=== PATIENT | male | born 1995 | race Caucasian/White ===

== ENCOUNTER 2021-11-24 23:31 | Observation (INO) | payer OTHER, SELFPAY ==
[2021-11-24 23:24] VITALS: BP 159/94; PULSE 119; RESP 16; TEMP 36.7; O2SAT 99; BMI 28.4
--- NOTE | 2021-11-24 23:29 | CT_ITS ---
PROCEDURE INFORMATION: Exam: CT Abdomen And Pelvis With Contrast Exam date and time: 11/24/2021 11:50 PM Age: 26 years old Clinical indication: Abdominal tenderness and constipation; Abdominal pain; Generalized; Patient HX: PT states he is constipated, abdomen hurts and he has used meth in last 3 hours; Additional info: Abd pain TECHNIQUE: Imaging protocol: Computed tomography of the abdomen and pelvis with contrast. Radiation optimization: All CT scans at this facility use at least one of these dose optimization techniques: automated exposure control; mA and/or kV adjustment per patient size (includes targeted exams where dose is matched to clinical indication); or iterative reconstruction. Contrast material: ISOVUE; Contrast volume: 75 ml; Contrast route: IV; COMPARISON: No relevant prior studies available. FINDINGS: Liver: Probable hepatic steatosis. Gallbladder and bile ducts: Normal. No calcified stones. No ductal dilation. Pancreas: Normal. No ductal dilation. Spleen: Cystic appearing splenic lesions of doubtful clinical significance. Borderline splenomegaly. Adrenal glands: Normal. No mass. Kidneys and ureters: Normal. No hydronephrosis. Stomach and bowel: Bowel wall thickening of the right and transverse colon. Appendix: Unremarkable appendix. Intraperitoneal space: Unremarkable. No free air. No significant fluid collection. Vasculature: Unremarkable. No abdominal aortic aneurysm. Lymph nodes: Unremarkable. No enlarged lymph nodes. Urinary bladder: Unremarkable as visualized. Reproductive: Unremarkable as visualized. Bones/joints: Unremarkable. No acute fracture. Soft tissues: Unremarkable. Other findings: Stigmata of old granulomatous disease. IMPRESSION: Bowel wall thickening of the right and transverse colon. Colitis would be most likely.
[2021-11-24 23:31] VITALS: BP 118/70; PULSE 110; O2SAT 93
[2021-11-24 23:48] LABS: Basophils # 0.3 K/mm3 (0-0.2); Basophils % 2.2 % (0.1-2.0); Eosinophils # 0.3 K/mm3 (0.0-0.4); Eosinophils % 2.5 % (0.1-12.0); Hematocrit 49.1 % (42.0-52.0); Hemoglobin 17.2 g/dL (14.1-18.0); Lymphocytes # 1.7 K/mm3 (0.7-4.5); Lymphocytes % 12.7 % (10-50); Mean Corpuscular HGB Conc 35.1 g/dL (31.8-35.4); Mean Corpuscular Hemoglobin 32.2 pg (27.0-31.2); Mean Corpuscular Volume 91.5 fl (80-94); Mean Platelet Volume 8.6 fl (7.4-10.4); Monocytes % 7.1 % (1.7-9.3); Neutrophils # 10.3 K/mm3 (1.8-7.8); Neutrophils % 75.5 % (37.0-80.0); Platelet Count 229 K/mm3 (142-424); Red Blood Count 5.36 M/mm3 (4.60-6.20); White Blood Count 13.6 K/mm3 (4.8-10.8)
[2021-11-24 23:54] LABS: Chloride 102 mmol/L (98-107); Potassium 3.7 mmoL/L (3.5-5.1); Sodium 138 mmol/L (136-145)
[2021-11-24 23:57] LABS: Alanine Aminotransferase 138 U/L (12-78); Albumin Level 4.4 g/dl (3.5-5.0); Albumin/Globulin Ratio 1.2 (1.1-1.8); Alkaline Phosphatase 76 U/L (38-126); Amylase 124 U/L (30-110); Anion Gap 11.7 mEq/L (5-15); Aspartate Amino Transferase 173 U/L (17-59); Bilirubin,Total 1.8 mg/dl (0.2-1.3); Blood Urea Nitrogen 21 mg/dl (9-20); Calcium 9.7 mg/dl (8.4-10.2); Carbon Dioxide 28 mmol/L (22.0-30.0); Creatinine Clearance Estimated 148 mL/min (50-200); Estimated Glomerular Filt Rate 101 ml/min (>60); GFR (African American) 122 ML/MIN (>60); Globulin 3.7 g/dL (1.3-3.2); Glucose 90 mg/dl (74-100); Lipase 145 U/L (23-300); Total Protein,Serum 8.1 g/dl (6.3-8.2)
[2021-11-25] VITALS (9 sets, daily range): BP systolic 101–132; BP diastolic 23–104; PULSE 71–113; RESP 16–22; TEMP 36.5–36.8; O2SAT 97–100; BMI 26.4
[2021-11-25 00:05] LABS: C-Reactive Protein 84.9 mg/L (0-4)
[2021-11-25 00:10] LABS: Appearance,Urine CLEAR (Clear); Bilirubin,Urine Negative (Negative); Blood, Urine 1+ (Negative); Color,Urine YELLOW (Yellow); Glucose,Urine (UA) Negative (Negative); Ketones,Urine Negative (Negative); Leukocyte Esterase,Urine Negative (Negative); Microscopic, Urine URINE MICROSCOPIC (MICROSCOPIC); Nitrate,Urine Negative (Negative); Protein,Urine Negative (Negative); Specific Gravity, Urine 1.025 (1.005-1.030); Urobilinogen,Urine 0.2 EU/dl (0.2)
[2021-11-25 00:17] LABS: Erythrocyte Sedimentation Rate 6 mm/hr (0-15)
[2021-11-25 00:24] LABS: Barbiturates Screen,Urine Negative ng/ml (<200); Benzodiazepines Screen,Urine Negative ng/ml (<200)
[2021-11-25 00:25] LABS: Cannabinoid Screen,Urine Negative ng/ml (<50)
[2021-11-25 00:26] LABS: Cocaine Screen,Urine Negative ng/ml (<300); Methadone Screen,Urine Negative ng/ml (<300)
[2021-11-25 00:27] LABS: Opiate Screen,Urine Negative ng/ml (<300); Phencyclidine Screen,Urine Negative ng/ml (<25)
[2021-11-25 00:28] LABS: Amphetamine/Metha Screen,Urine Positive ng/ml (<1000)
--- NOTE | 2021-11-25 00:59 | HMH.EDNVD ---
ED Disposition Clinical Impression: Colitis, Overweight (BMI 25.0-29.9), IVDU (intravenous drug user), Amphetamine abuse, Elevated LFTs UTI (urinary tract infection) Qualifiers: Urinary tract infection type: site unspecified Hematuria presence: without hematuria Qualified Code(s): N39.0 - Urinary tract infection, site not specified Disposition: Admitted As Inpatient Condition on Discharge: Fair Instructions: DI for Acute Abdominal Pain Referrals: Provider,Referral, [Primary Care Provider] - - Critical Care Critical Care Time: No Attestation: On 11/24/21, the high probability of a clinically significant, sudden or life threatening deterioration of the following system(s) required my full and direct attention, intervention and personal management. The time I documented below is in addition to time spent performing reported procedures but includes the following listed in this critical care notation. Medical Decision Making - Medical Records Medical records reviewed: Yes: I reviewed the patient's medical records. - Cong Inquiry Pt receiving controlled substance: No Vital Signs: 11/24/21 23:24 11/24/21 23:31 11/25/21 00:31 Temperature 98.1 F Temperature Source Oral Pulse Rate 110 H 113 H Pulse Rate [Right] 119 H Respiratory Rate 16 Blood Pressure 118/70 132/104 H Blood Pressure [Right Arm] 159/94 H Blood Pressure Mean 87 111 Blood Pressure Mean [Right Arm] 115 02 Sat by Pulse Oximetry 99 93 L 98 Oxygen Delivery Method Room Air Room Air 11/25/21 01:04 Temperature Temperature Source Pulse Rate 109 H Pulse Rate [Right] Respiratory Rate Blood Pressure 132/57 L Blood Pressure [Right Arm] Blood Pressure Mean 82 Blood Pressure Mean [Right Arm] 02 Sat by Pulse Oximetry 97 Oxygen Delivery Method Room Air - Lab Data Lab results reviewed: Yes: I reviewed the patient's lab results. Lab Results 11/24/21 23:37: WBC 13.6 H, RBC 5.36, Hgb 17.2, Hct 49.1, MCV 91.5, MCH 32.2 H, MCHC 35.1, RDW 15.0, Plt Count 229, MPV 8.6, Neut % (Auto) 75.5, Lymph % (Auto) 12.7, [place] % (Auto) 7.1, Eos % (Auto) 2.5, Baso % (Auto) 2.2 H, Neut # (Auto) 10.3 H, Lymph # (Auto) 1.7, [place] # (Auto) 1.0, Eos # (Auto) 0.3, Baso # (Auto) 0.3 H, ESR 6 11/24/21 23:37: Sodium 138, Potassium 3.7, Chloride 102, Carbon Dioxide 28, Anion Gap 11.7, BUN 21 H, Creatinine 0.90, Estimated Creat Clear 148, Estimated GFR 101, Est GFR ( Amer) 122, Glucose 90, Calcium 9.7, Total Bilirubin 1.8 H, AST 173 H, ALT 138 H, Alkaline Phosphatase 76, C-Reactive Protein 84.9 H, Total Protein 8.1, Albumin 4.4, Globulin 3.7 H, Albumin/Globulin Ratio 1.2, Amylase 124 H, Lipase 145 11/24/21 23:37: Procalcitonin 0.118 11/25/21 00:05: Urine Color Yellow, Urine Appearance Clear, Urine pH 6.0, Ur Specific [place] 1.025, Urine Protein Negative, Urine Glucose (UA) Negative, Urine Ketones Negative, Urine Blood 1+, Urine Nitrate Negative, Urine Bilirubin Negative, Urine Urobilinogen 0.2, Ur Leukocyte Esterase Negative, Urine RBC 5-10, Urine WBC 10-20 11/25/21 00:05: Urine Opiates Screen Negative, Urine Methadone Screen Negative, Ur Barbituates Screen Negative, Ur Phencyclidine Scrn Negative, Ur Amphetamines Screen Positive H, U Benzodiazepines Scrn Negative, Urine Cocaine Screen Negative, U Marijuana (THC) Screen Negative 11/25/21 01:09: Lactate 0.7 11/25/21 01:13: SARS-CoV-2 (PCR) Not detected, Influenza A Untype (PCR) Not detected, Influenza Type B (PCR) Not detected Result diagrams: 11/24/21 23:37 11/24/21 23:37 Orders (Tests/Meds): ED MEDICATIONS Generic Name Dose Route Start Last Admin Trade Name Freq PRN Reason Stop Dose Admin Sodium Chloride 1,000 mls @ 999 mls/hr 11/24/21 23:30 11/24/21 23:49 Sod Chlor 0.9% 1000ml Bag IV 11/25/21 00:30 999 mls/hr .[id number] DOTTIE Administration Cefepime HCl 1 gm/ Sodium 50 mls @ 100 mls/hr 11/25/21 01:30 11/25/21 01:23 Chloride IV 12/09/21 01:29 100 mls/hr Q12H DOTTIE Administration Va
--- NOTE | 2021-11-25 01:12 | XR_ITS ---
PROCEDURE INFORMATION: Exam: XR Chest Exam date and time: 11/25/2021 1:15 AM Age: 26 years old Clinical indication: Pain; Other: Upper abdomen; Additional info: Abd pain TECHNIQUE: Imaging protocol: XR of the chest. Views: 1 view. COMPARISON: CT ABDOMEN PELVIS W CON 11/24/2021 11:50 PM FINDINGS: Lungs: Unremarkable. No consolidation. Pleural spaces: Unremarkable. No pleural effusion. No pneumothorax. Heart/Mediastinum: Unremarkable. No cardiomegaly. Bones/joints: Unremarkable. IMPRESSION: No acute findings.
[2021-11-25 01:22] LABS: Coronavirus 19, PCR Not Detected (NotDetected); Influenza A, PCR Not Detected (NotDetected); Influenza B, PCR Not Detected (NotDetected)
[2021-11-25 01:27] LABS: Lactic Acid 0.7 mmol/L (0.7-2.1)
[2021-11-25 01:31] LABS: Procalcitonin 0.118 ng/mL (0.0-2.0)
--- NOTE | 2021-11-25 03:00 | PC.NURSE ---
PATIENT UP TO FLOOR VIA WHEELCHAIR @ THIS TIME.
--- NOTE | 2021-11-25 07:11 | HMH.PHAINT ---
MEDICATION RECONCILIATION COMPLETED ON PATIENT USING EXTERNAL FILL HISTORY FROM PHARMACY. -CHERELLE LANDEROS, GLADISD
--- NOTE | 2021-11-25 07:12 | HMH.PHAVTE ---
[facility] Pharmacy VTE Monitoring - Patient Demographics Admission date: 11/25/21 Report Date: 11/25/21 Time: 07:12 Allergies/Adverse Reactions: Patient Allergies No Known Allergies Allergy (Verified 11/24/21 23:29) Height: 1.73 m Weight: 78.925 kg Patient Problems: Current Active Problems Colitis (Acute) Overweight (BMI 25.0-29.9) (Acute) IVDU (intravenous drug user) (Acute) Amphetamine abuse (Acute) UTI (urinary tract infection) (Acute) Elevated LFTs (Acute) - VTE Risk Labs: VTE Related Lab Results Hgb 17.2 g/dL (14.1-18.0) 11/24/21 23:37 Hct 49.1 % (42.0-52.0) 11/24/21 23:37 Plt Count 229 K/mm3 (142-424) 11/24/21 23:37 BUN 21 mg/dl (9-20) H 11/24/21 23:37 Creatinine 0.90 mg/dl (0.66-1.25) 11/24/21 23:37 Estimated Creat Clear 148 mL/min (50-200) 11/24/21 23:37 Was VTE Risk Assessment Performed: Yes VTE Score: 0 - Prophylaxis VTE Prophylaxis Ordered?: Yes Types of VTE Prophylaxis: TEDS Knee High Location of Applied Device: Bilateral Lower Extremeties
--- NOTE | 2021-11-25 07:58 | P.CONPHA_ITS ---
- Pharmacy Consult Date: 11/25/21 Time: 07:58 Referring provider: OCTAVIA Reason for Consult:: VANCOMYCIN INITIATION AND MANAGEMENT Allergies and ADEs:: Allergies Allergy/AdvReac Type Severity Reaction Status Date / Time No Known Allergies Allergy Verified 11/24/21 23:29 Home Medications:: Home Medications Medication Instructions Recorded Confirmed Type Melatonin 10 mg PO HS 11/25/21 11/25/21 History hydrOXYzine HCL [Hydroxyzine HCl] 25 mg PO QIDP PRN 11/25/21 11/25/21 History Height: 1.73 m Weight: 78.925 kg Laboratory Results:: Laboratory Results - last 24 hr 11/24/21 23:37: WBC 13.6 H, RBC 5.36, Hgb 17.2, Hct 49.1, MCV 91.5, MCH 32.2 H, MCHC 35.1, RDW 15.0, Plt Count 229, MPV 8.6, Neut % (Auto) 75.5, Lymph % (Auto) 12.7, [place] % (Auto) 7.1, Eos % (Auto) 2.5, Baso % (Auto) 2.2 H, Neut # (Auto) 10.3 H, Lymph # (Auto) 1.7, [place] # (Auto) 1.0, Eos # (Auto) 0.3, Baso # (Auto) 0.3 H, ESR 6 11/24/21 23:37: Sodium 138, Potassium 3.7, Chloride 102, Carbon Dioxide 28, Anion Gap 11.7, BUN 21 H, Creatinine 0.90, Estimated Creat Clear 148, Estimated GFR 101, Est GFR ( Amer) 122, Glucose 90, Calcium 9.7, Total Bilirubin 1.8 H, AST 173 H, ALT 138 H, Alkaline Phosphatase 76, C-Reactive Protein 84.9 H, Total Protein 8.1, Albumin 4.4, Globulin 3.7 H, Albumin/Globulin Ratio 1.2, Amylase 124 H, Lipase 145 11/24/21 23:37: Procalcitonin 0.118 11/25/21 00:05: Urine Color Yellow, Urine Appearance Clear, Urine pH 6.0, Ur Specific [place] 1.025, Urine Protein Negative, Urine Glucose (UA) Negative, Urine Ketones Negative, Urine Blood 1+, Urine Nitrate Negative, Urine Bilirubin Negative, Urine Urobilinogen 0.2, Ur Leukocyte Esterase Negative, Urine RBC 5- 10, Urine WBC 10-20 11/25/21 00:05: Urine Opiates Screen Negative, Urine Methadone Screen Negative, Ur Barbituates Screen Negative, Ur Phencyclidine Scrn Negative, Ur Amphetamines Screen Positive H, U Benzodiazepines Scrn Negative, Urine Cocaine Screen Negative, U Marijuana (THC) Screen Negative 11/25/21 01:09: Lactate 0.7 11/25/21 01:13: SARS-CoV-2 (PCR) Not detected, Influenza A Untype (PCR) Not detected, Influenza Type B (PCR) Not detected Medical History: Denies:: Cancer, Diabetes Mellitus Type 1, Diabetes Mellitus Type 2, MRSA Assessment and Plan - Assessment and plan all Dx Assessment and Plan for all problems:: VANCOMYCIN 1500MG (~20MG/KG) STARTED IN ER FOR SUSPECTED INFECTION. PT ALSO REC EIVING CEFEPIME. WILL CONTINUE 1500MG EVERY 8 HOURS BASED ON PTS GOOD RENAL FUNCTION. PHARMACY WILL FOLLOW DAILY
--- NOTE | 2021-11-25 08:00 | CA_ITS ---
APPROVED REPORT EXAM: Comprehensive 2D, Doppler, and color-flow Echocardiogram Bag Shaker: PHILIP Mckay, RVS Ht: 5 ft 8 in Wt: 187lbs BSA: 1.99 BP: 000/00 mmHg Indications: IV drug abuse, Murmur Echo Enhancing Agent Comments: Bright pericardium without gross evidence of valvular vegetaions. 2D Dimensions LVDd 4.67 cm M: 4.2 - 5.9 LVEF (Visual) 66.10 % LVDs 2.97 cm M: 2.5 - 4.0 LA Volume 37.70 mL Aortic Root 2.88 cm M: 3.1 - 3.7 LA Volume Index 19.04 mL/m2 (M/F) 16-34 Left Atrium 2.85 cm M: 3.0 - 4.0 LVOT 1.91 cm (M/F) 1.5-2.5 M-Mode Dimensions RVDd 2.64 cm (0.9-2.6) LA Diam 3.31 cm (1.9-4.0) LVDd 4.99 cm (3.5-5.7) Ao Diam 3.26 cm (2.0-3.7) LVDs 3.18 cm (3.5-5.7) IVSd 0.90 cm (0.6-1.1) PWd 0.64 cm (0.6-1.1) EF (Teich) 65.80% EPSs 0.34 cm FS 36.30% EDV (Teich) 117.70 mL TAPSE 1.61 (<1.7) ESV (Teich) 40.30 mL LV Diastology E Decel Time 153.00 (160-240 msec) E/A Ratio 1.66 MED E' 13.40 (< 7 cm/sec) MED A' 10.90 cm/s E'/MED E' Ratio 5.83 (>14) LAT E' 16.50 (<10 cm/sec) LAT A' 7.80 cm/s E/LAT E' Ratio 4.73 (>14) Aortic Valve LVOT Max 119.00 (70-110 cm/s) LVOT VTI 21.06 cm AoV Peak Aron. 113.00 (50-130 cm/s) AO Peak GR. 5.10 mmHg AO Mean GR. 2.50 (<5 mmHg) AO VTI 20.35 (18-25 cm) MIRELLA (VTI) 2.97 (2.5-4.5 cm2) Mitral Valve MV A Velocity 47.00 (40-130 cm/s) E/A Ratio 1.66 MV Decel. Time 153.00 (160-240 ms) MV PHT 47.00 ms Pulmonary Valve PV Peak Velocity 94.00 (50-150 cm/s) Tricuspid Valve TR P. Velocity 222.00 cm/s RAP Estimate 10.00 mmHg RVSP 29.70 mmHg Left Ventricle Left atrium is normal size, left ventricle is normal size, there is no concentric left ventricular hypertrophy, estimated ejection fraction 55% with no regional wall motion abnormality, diastolic parameters are within normal range. Right Ventricle Right atrium and right ventricle are normal size and contractility. Aortic Valve Aortic valve is grossly normal there is no aortic stenosis or aortic insufficiency. Mitral Valve Mitral valve grossly normal, there is no mitral stenosis, there is trace mitral regurgitation. Tricuspid Valve Tricuspid grossly normal, there is mild tricuspid regurgitation, calculated right ventricular systolic pressure 29 mmHg. Pulmonic Valve Pulmonic valve is poorly visualized. Great Vessels Aortic root is normal size. Inferior vena cava normal size normal inspiratory collapse. Pericardium No significant pericardial effusion noted. Conclusion 1. Normal left ventricular size, preserved left ventricular systolic function, visually estimated ejection fraction 55% with no regional wall motion abnormality, diastolic parameters are within normal range. 2. Trace mitral and mild tricuspid regurgitation, calculated right ventricular systolic pressure 29 mmHg. 3. No significant pericardial effusion. 4. Inferior vena cava is normal size with normal inspiratory collapse. Electronically signed by : Judah Medellin MD 11/25/2021 09:22:10
--- NOTE | 2021-11-25 08:37 | PC.NURSE ---
pt is noted to nod off during conversation and assessments. easy to arouse, difficult to keep awake. md aware
--- NOTE | 2021-11-25 09:16 | HMH.HP ---
*Admission Date: 11/25/21 *Chief complaint: abd pain *History of present illness: 26 yr old male presented to ED via ambulance for abd pain and constipation x several days. pt admits to using IV meth 3 hrs prior to arrival to ed per ed noted. pt with recent rehab discharge. per ct abd pelvis Bowel wall thickening of the right and transverse colon. Colitis would be most likely. pt also has a uti, Pt admitted for work up and iv antibiotics. [facility] History I have reviewed the patient's past medical history: Yes Medical History: Denies:: Cancer, Diabetes Mellitus Type 1, Diabetes Mellitus Type 2, MRSA *Have you ever received a pneumonia vaccine?: No *Have you received a flu vaccine this season?: No Other Surgeries: Yes: No Previous Surgery Amputation: No Fractures: No - *Social History Last grade of school completed: High school graduate Smoking Status: Current some day smoker # Packs/Day (cigarettes): 1 Alcohol Intake: never Substance Use Type: heroin, amphetamines Last Used Substance: just [employer], hours (ago) *Occupational Status:: unemployed Housing: other Household Members: friend(s) *Travel in the last 8 weeks: None Family Hx:: Unable to obtain Review of Systems - Review of Systems Review of systems:: pertinent systems reviewed and negative unless documented below - Constitutional Denies body ache(s), Denies fatigue - Eyes Denies bulging eyes - ENT Denies bleeding gums - *Cardiovascular Denies chest pain at rest - *Respiratory Denies change in phlegm color, Denies chest congestion - *Gastrointestinal Reports abdominal pain, Reports constipation, Reports cramping, Denies nausea - *Genitourinary Denies urinary urgency - *Musculoskeletal Denies joint pain - Integumentary/Breasts Denies rash - *Neurologic Denies seizure-like activity - Psychiatric Denies lack of enjoyment - Endocrine Denies excessive sweating - Hematologic/Lymphatic Denies easy bruising - Allergic/Immunologic Denies itchy eyes Meds Home Medications Medication Instructions Recorded Confirmed Type Melatonin 10 mg PO HS 11/25/21 11/25/21 History hydrOXYzine HCL [Hydroxyzine HCl] 25 mg PO QIDP PRN 11/25/21 11/25/21 History Allergies Allergy/AdvReac Type Severity Reaction Status Date / Time No Known Allergies Allergy Verified 11/24/21 23:29 Exam Vital signs and Labs for Last 24 Hours: Temp Pulse Resp BP Pulse Ox 97.9 F 101 H 22 101/23 L 98 11/25/21 08:00 11/25/21 08:23 11/25/21 08:00 11/25/21 08:00 11/25/21 08:23 Laboratory Results - last 24 hr 11/24/21 23:37: WBC 13.6 H, RBC 5.36, Hgb 17.2, Hct 49.1, MCV 91.5, MCH 32.2 H, MCHC 35.1, RDW 15.0, Plt Count 229, MPV 8.6, Neut % (Auto) 75.5, Lymph % (Auto) 12.7, [place] % (Auto) 7.1, Eos % (Auto) 2.5, Baso % (Auto) 2.2 H, Neut # (Auto) 10.3 H, Lymph # (Auto) 1.7, [place] # (Auto) 1.0, Eos # (Auto) 0.3, Baso # (Auto) 0.3 H, ESR 6 11/24/21 23:37: Sodium 138, Potassium 3.7, Chloride 102, Carbon Dioxide 28, Anion Gap 11.7, BUN 21 H, Creatinine 0.90, Estimated Creat Clear 148, Estimated GFR 101, Est GFR ( Amer) 122, Glucose 90, Calcium 9.7, Total Bilirubin 1.8 H, AST 173 H, ALT 138 H, Alkaline Phosphatase 76, C-Reactive Protein 84.9 H, Total Protein 8.1, Albumin 4.4, Globulin 3.7 H, Albumin/Globulin Ratio 1.2, Amylase 124 H, Lipase 145 11/24/21 23:37: Procalcitonin 0.118 11/25/21 00:05: Urine Color Yellow, Urine Appearance Clear, Urine pH 6.0, Ur Specific [place] 1.025, Urine Protein Negative, Urine Glucose (UA) Negative, Urine Ketones Negative, Urine Blood 1+, Urine Nitrate Negative, Urine Bilirubin Negative, Urine Urobilinogen 0.2, Ur Leukocyte Esterase Negative, Urine RBC 5-10, Urine WBC 10-20 11/25/21 00:05: Urine Opiates Screen Negative, Urine Methadone Screen Negative, Ur Barbituates Screen Negative, Ur Phencyclidine Scrn Negative, Ur Amphetamines Screen Positive H, U Benzodiazepines Scrn Negative, Urine Cocaine Screen Negative, U Marijuana (THC) Screen Neg
--- NOTE | 2021-11-25 15:00 | SW/DCPLANNER ---
Addendum entered by Shawna Horn 11/26/21 08:56: The plan for this patient is to discharge home today. Patient stated that he is not interested in returning to rehab at time of discharge and his mother will be available to transport him home today. Original Note: I attempted to speak with this patient regarding discharge plans: patient not willing to communicate at this time.
--- NOTE | 2021-11-25 16:04 | PC.NURSE ---
Pt expressed wishes for something other than clear liquids to eat. Eamon Alvarado contacted at 1600 and approved order for diet to advance as tolerated. diet to be started at [facility].
--- NOTE | 2021-11-25 18:25 | PC.NURSE ---
Pt has slept almost the entire shift. he has been awake for brief periods of time, he will awaken easily to converse coherently with staff then go back to sleep. he prefers to sleep with the blankets over his head. lungs remain clear with occasional rhonchi, bowel sounds active. pt has been able to ambulate to the restroom independently this shift, so voids were not measured. nad noted will monitor.
[2021-11-26 03:52] VITALS: BP 115/71; PULSE 75; RESP 16; TEMP 36.6; O2SAT 97
--- NOTE | 2021-11-26 04:08 | PC.NURSE ---
pt has rested t/o most of shift, has ambulated to the BR 3 times this shift, no reports of pain or SOA, remains on room air with O2 sats 97-100%, HR 75-76, no n/v this shift
[2021-11-26 04:13] LABS: Vancomycin,Trough 14.3 ug/mL (5.0-10.0)
--- NOTE | 2021-11-26 04:31 | PC.NURSE ---
[facility] contacted at this time with vanc trough results, stated to go ahead and give 0400 vanc dose
[2021-11-26 05:27] VITALS: BMI 27.1
[2021-11-26 06:09] LABS: Basophils # 0.1 K/mm3 (0-0.2); Basophils % 1.1 % (0.1-2.0); Eosinophils # 0.3 K/mm3 (0.0-0.4); Eosinophils % 4.8 % (0.1-12.0); Hematocrit 42.7 % (42.0-52.0); Hemoglobin 15.4 g/dL (14.1-18.0); Lymphocytes # 1.7 K/mm3 (0.7-4.5); Lymphocytes % 26.7 % (10-50); Mean Corpuscular HGB Conc 36.1 g/dL (31.8-35.4); Mean Corpuscular Hemoglobin 32.7 pg (27.0-31.2); Mean Corpuscular Volume 90.6 fl (80-94); Mean Platelet Volume 9.2 fl (7.4-10.4); Monocytes # 0.5 K/mm3 (0.1-1.0); Monocytes % 7.7 % (1.7-9.3); Neutrophils # 3.9 K/mm3 (1.8-7.8); Neutrophils % 59.7 % (37.0-80.0); Platelet Count 205 K/mm3 (142-424); Red Blood Count 4.71 M/mm3 (4.60-6.20); White Blood Count 6.5 K/mm3 (4.8-10.8)
[2021-11-26 06:20] LABS: Anion Gap 9.1 mEq/L (5-15); Blood Urea Nitrogen 8 mg/dl (9-20); Carbon Dioxide 27 mmol/L (22.0-30.0); Chloride 105 mmol/L (98-107); Creatinine Clearance Estimated 256 mL/min (50-200); Estimated Glomerular Filt Rate 199 ml/min (>60); GFR (African American) 241 ML/MIN (>60); Glucose 104 mg/dl (74-100); Potassium 3.1 mmoL/L (3.5-5.1); Sodium 138 mmol/L (136-145)
[2021-11-26 08:00] VITALS: BP 122/61; PULSE 75; RESP 17; TEMP 36.7; O2SAT 97; O2SAT 98
[2021-11-26 08:53] LABS: Vancomycin,Peak 29.9 ug/ml (11-39)
--- NOTE | 2021-11-26 08:57 | HMH.DCSUM ---
General - General Admission date:: 11/25/21 Discharge date: 11/26/21 HPI HPI: 26 yr old male presented to ED via ambulance for abd pain and constipation x several days. pt admits to using IV meth 3 hrs prior to arrival to ed per ed noted. pt with recent rehab discharge. per ct abd pelvis Bowel wall thickening of the right and transverse colon. Colitis would be most likely. pt also has a uti, Pt admitted for work up and iv antibiotics. Hospital Course Hospital Course: 26 yr old male presented to ED via ambulance for abd pain and constipation x several days. pt admits to using IV meth 3 hrs prior to arrival to ed per ed noted. pt with recent rehab discharge. per ct abd pelvis Bowel wall thickening of the right and transverse colon. Colitis would be most likely. pt also has a uti, Pt admitted for work up and iv antibiotics. 11/25/21 ECHO; Conclusion 1. Normal left ventricular size, preserved left ventricular systolic function, visually estimated ejection fraction 55% with no regional wall motion abnormality, diastolic parameters are within normal range. 2. Trace mitral and mild tricuspid regurgitation, calculated right ventricular systolic pressure 29 mmHg. 3. No significant pericardial effusion. 4. Inferior vena cava is normal size with normal inspiratory collapse. Electronically signed by : Judah Medeliln MD Amphetamine abuse, IVDU (intravenous drug user) Was amphetamine positive on his urine drug screen and admits to using amphetamines recently Colitis Abdominal/pelvic CT reveals bowel wall thickening of the right and transverse colon. Colitis would be most likely. He has received cefepime and vancomycin IV during his stay and will be discharged home on no antibiotics. He tolerated a regular breakfast this morning without N/V White blood cell count US 6.5 today, H/H stable He has tolerated a regular breakfast without any complaints of nausea/vomiting. Abdominal area is slightly tender, discussed discharged home, he is agreement with this. He will follow-up with [facility] in [place], [place]. Discussed lifestyle modifications, he reports he will be enrolling in a treatment center. PLAN: 1. We will discharge home today 2. Follow-up with PCP in 1 week Objective Vital signs: Temp Pulse Resp BP Pulse Ox 98.1 F 75 17 122/61 98 11/26/21 08:00 11/26/21 08:00 11/26/21 08:00 11/26/21 08:00 11/26/21 08:00 no acute distress - *Routine HEENT Exam Head: Present: normocephalic Eye: Present: EOMI ENT: Present: mucous membranes moist - *Routine Neck Exam Present: trachea midline. Absent: tracheal deviation - *Routine Respiratory Exam Present: CTA bilaterally. Absent: accessory muscle use - *Routine Cardiovascular Exam Present: RRR - *Routine Abdominal Exam Present: soft, normoactive bowel sounds, tenderness. Absent: distended, firm - *Routine Extremities Exam Present: full ROM, pulses intact. Absent: cyanosis, clubbing - *Routine Skin Exam Present: intact, normal turgor. Absent: cyanosis, erythema - *Routine Neurological Exam Present: alert, oriented X3. Absent: motor deficit, altered mental status - Routine Psychiatric Exam Present: normal affect, normal thought process. Absent: visual hallucinations Results Labs on day of discharge: Labs from last 24 hours 11/26/21 11/26/21 11/26/21 07:51 05:35 05:35 WBC 6.5 D RBC 4.71 Hgb 15.4 Hct 42.7 MCV 90.6 MCH 32.7 H MCHC 36.1 H RDW 15.0 Plt Count 205 MPV 9.2 Neut % (Auto) 59.7 Lymph % (Auto) 26.7 [place] % (Auto) 7.7 Eos % (Auto) 4.8 Baso % (Auto) 1.1 Neut # (Auto) 3.9 Lymph # (Auto) 1.7 [place] # (Auto) 0.5 Eos # (Auto) 0.3 Baso # (Auto) 0.1 Sodium 138 Potassium 3.1 L Chloride 105 Carbon Dioxide 27 Anion Gap 9.1 BUN 8 L D Creatinine 0.50 L D Estimated Creat Clear 256 E
--- NOTE | 2021-11-26 10:19 | HMH.PHACONS ---
- Pharmacy Consult Date: 11/26/21 Time: 10:19 Referring provider: DR. FLORES Reason for Consult:: VANCOMYCIN LEVEL Allergies and ADEs:: Allergies Allergy/AdvReac Type Severity Reaction Status Date / Time No Known Allergies Allergy Verified 11/24/21 23:29 Home Medications:: Home Medications Medication Instructions Recorded Confirmed Type Melatonin 10 mg PO HS 11/25/21 11/25/21 History hydrOXYzine HCL [Hydroxyzine HCl] 25 mg PO QIDP PRN 11/25/21 11/25/21 History Height: 1.73 m Weight: 81.42 kg Laboratory Results:: Laboratory Results - last 24 hr 11/26/21 03:30: Vancomycin Trough 14.3 H 11/26/21 05:35: WBC 6.5 D, RBC 4.71, Hgb 15.4, Hct 42.7, MCV 90.6, MCH 32.7 H, MCHC 36.1 H, RDW 15.0, Plt Count 205, MPV 9.2, Neut % (Auto) 59.7, Lymph % (Auto) 26.7, [place] % (Auto) 7.7, Eos % (Auto) 4.8, Baso % (Auto) 1.1, Neut # (Auto) 3.9, Lymph # (Auto) 1.7, [place] # (Auto) 0.5, Eos # (Auto) 0.3, Baso # (Auto) 0.1 11/26/21 05:35: Sodium 138, Potassium 3.1 L, Chloride 105, Carbon Dioxide 27, Anion Gap 9.1, BUN 8 L D, Creatinine 0.50 L D, Estimated Creat Clear 256, Estimated GFR 199, Est GFR ( Amer) 241 D, Glucose 104 H, Calcium 8.0 L 11/26/21 07:51: Vancomycin Peak 29.9 Medical History: Denies:: Cancer, Diabetes Mellitus Type 1, Diabetes Mellitus Type 2, MRSA Assessment and Plan (1) Amphetamine abuse Status: Acute Category: Medical Code(s): F15.10 - Other stimulant abuse, uncomplicated (2) Colitis Status: Acute Category: Medical Code(s): K52.9 - Noninfective gastroenteritis and colitis, unspecified (3) IVDU (intravenous drug user) Status: Acute Category: Social Hx Code(s): F19.90 - Other psychoactive substance use, unspecified, uncomplicated - Assessment and plan all Dx Assessment and Plan for all problems:: PATIENT'S VANCOMYCIN TROUGH LEVEL WAS 14.3 MCG/ML AND VANCOMYCIN PEAK WAS 29.9 MCG/ML. RECOMMENDED PATIENT CONTINUE WITH VANCOMYCIN 1500 MG Q8H AT THIS TIME.
[2021-12-14 17:38] LABS: Hep A Ab, IgM NEGATIVE; Hepatitis B Core Antibody IgM NEGATIVE; Hepatitis B Surface Antigen NEGATIVE
[2021-12-14 17:39] LABS: Hepatitis C Antibody >11.0
== END 2021-11-26 11:41 | disposition home or self-care (01) ==
LOC: ER 11-25 02:30 → 2ND 11-25 02:42
PROVIDERS: Nurse Practitioner Family; Admitting Provider Emergency Medicine; Emergency Provider Emergency Medicine; Visit Provider Emergency Medicine
DX: F15.10 Other stimulant abuse, uncomplicated (principal); Z20.822 Contact with and (suspected) exposure to COVID-19; N39.0 Urinary tract infection, site not specified; F17.210 Nicotine dependence, cigarettes, uncomplicated
CPT/HCPCS: 71045; 74177; 80048; 80053; 80074; 80202; 80305; 81001; 82150; 83605; 83690; 84145; 85025; 85651; 86140; 87040; 87086; 93306; 99285; C9803; G0378; J0692; Q9967; U0003; U0005

== ENCOUNTER 2021-12-03 12:42 | Emergency (ER) | payer OTHER, SELFPAY ==
[2021-12-03] VITALS (7 sets, daily range): BP systolic 107–141; BP diastolic 71–88; PULSE 68–83; RESP 16–22; TEMP 36.6–36.9; O2SAT 88–99; BMI 25.1
--- NOTE | 2021-12-03 12:55 | HMH.EDGENADL ---
ED Disposition Clinical Impression: Heroin overdose Qualifiers: Encounter type: initial encounter Injury intent: accidental or unintentional Qualified Code(s): T40.1X1A - Poisoning by heroin, accidental (unintentional), initial encounter Disposition: Home, Self-Care Condition on Discharge: Good Instructions: DI for Opioid Use Disorder, DI for Drug Overdose in Adults Additional Instructions: Follow-up with primary care provider, call for appointment. Follow-up for comprehensive care for substance use disorder: Address: [address] [place] [address] Referrals: Provider,Referral, [Primary Care Provider] - - Critical Care Critical Care Time: No Attestation: On 12/03/21, the high probability of a clinically significant, sudden or life threatening deterioration of the following system(s) required my full and direct attention, intervention and personal management. The time I documented below is in addition to time spent performing reported procedures but includes the following listed in this critical care notation. Medical Decision Making - Medical Records Medical records reviewed: Yes: I reviewed the patient's medical records. MR Comment: Reviewed discharge summary from admission 11/25/2021 through 11/26/2021 for constipation, abdominal pain, colitis, urinary tract infection, amphetamine abuse. - Cong Inquiry Pt receiving controlled substance: No Vital Signs: 12/03/21 12:42 Temperature 98.4 F Temperature Source Oral Pulse Rate [Radial] 71 Respiratory Rate 18 Blood Pressure [Right Arm] 141/73 H Blood Pressure Mean [Right Arm] 95 Blood Pressure Position [Right Arm] Sitting 02 Sat by Pulse Oximetry 98 Oxygen Delivery Method Room Air - Lab Data Lab Results 12/03/21 13:06: WBC 6.7, RBC 4.83, Hgb 15.5, Hct 44.0, MCV 91.0, MCH 32.1 H, MCHC 35.3, RDW 14.6, Plt Count 276, MPV 8.3, Neut % (Auto) 58.0, Lymph % (Auto) 32.8, [place] % (Auto) 4.9, Eos % (Auto) 2.4, Baso % (Auto) 2.0, Neut # (Auto) 3.9, Lymph # (Auto) 2.2, [place] # (Auto) 0.3, Eos # (Auto) 0.2, Baso # (Auto) 0.1 12/03/21 13:06: Sodium 141, Potassium 4.0, Chloride 105, Carbon Dioxide 30, Anion Gap 10.0, BUN 13, Creatinine 0.70, Estimated Creat Clear 183, Estimated GFR 135, Est GFR ( Amer) 164, Glucose 90, Calcium 9.2, Total Bilirubin 0.7, AST 109 H, ALT 139 H, Alkaline Phosphatase 54, Total Protein 7.4, Albumin 3.9, Globulin 3.5 H, Albumin/Globulin Ratio 1.1, Salicylates < 1.0 L, Acetaminophen < 10 L 12/03/21 13:06: Plasma/Serum Alcohol < 10 Result diagrams: 12/03/21 13:06 12/03/21 13:06 Orders (Tests/Meds): ORDERS Category Date Time Status XR chest portable Stat Exams 12/03/21 13:00 Taken Drug Screen,Urine Stat Lab 12/03/21 12:59 Ordered - Radiology Data #1 Image(s): Chest Image Reviewed: Yes I reviewed the patient's radiology image Preliminary Findings: Normal/NAD (poor inspiration) - ECG Data Tracing #1 EKG interpreted by Sid Em MD: Rhythm: sinus Rate: 72 [place]: normal Ectopy: none Conduction: normal ST Segment Changes: none T Wave Changes: none Q Waves: none No evidence of acute ischemia or injury Normal electrocardiogram - Reevaluation(s) Time: 15:09 Reevaluation #1: Awake alert and oriented. Pupils 4 to 5 mm bilaterally. Patient says he feels well. I feel he is suitable for discharge. Medical Decision Narrative: Discussed patient's elevated liver function tests. He tells me he does have hepatitis C. General Adult HPI - General Chief complaint: Overdose Stated complaint: overdose Time Seen by Provider: 12/03/21 12:55 Mode of Arrival: EMS Limitations: No Limitations Description of Symptoms (Recalled from ER Triage Doc. by RN): to ed per squad sent to ed for heroin overdose. pt was given 2mg narcan nasally x 2 per bystander. pt admits to iv drug use. pt drowsey will open eyes with verbal stimuli. pt with hx of overdose in past. - History of Presen
--- NOTE | 2021-12-03 13:00 | XR_ITS ---
FINAL REPORT CLINICAL HISTORY: overdosed. COMPARISON: 11/25/21 FINDINGS: SINGLE VIEW CHEST The heart size is enlarged. The mediastinum is within normal limits. No acute pulmonary abnormality is identified. There is no evidence of pneumothorax. The bony thorax is intact. IMPRESSION: No acute cardiopulmonary process. Reviewed, Interpreted and Dictated by Teja Dove III, MD Transcribed by Sarah Johnson Authenticated by Teja Dove III, MD on 12/03/2021 03:19:31 PM [facility]
[2021-12-03 13:16] LABS: Basophils # 0.1 K/mm3 (0-0.2); Eosinophils # 0.2 K/mm3 (0.0-0.4); Eosinophils % 2.4 % (0.1-12.0); Hemoglobin 15.5 g/dL (14.1-18.0); Lymphocytes # 2.2 K/mm3 (0.7-4.5); Lymphocytes % 32.8 % (10-50); Mean Corpuscular HGB Conc 35.3 g/dL (31.8-35.4); Mean Corpuscular Hemoglobin 32.1 pg (27.0-31.2); Mean Platelet Volume 8.3 fl (7.4-10.4); Monocytes # 0.3 K/mm3 (0.1-1.0); Monocytes % 4.9 % (1.7-9.3); Neutrophils # 3.9 K/mm3 (1.8-7.8); Platelet Count 276 K/mm3 (142-424); Red Blood Count 4.83 M/mm3 (4.60-6.20); Red Cell Distribution Width 14.6 % (11.5-17.5); White Blood Count 6.7 K/mm3 (4.8-10.8)
[2021-12-03 13:21] LABS: Chloride 105 mmol/L (98-107); Sodium 141 mmol/L (136-145)
--- NOTE | 2021-12-03 13:22 | ECG_ITS ---
APPROVED REPORT Exam: Resting ECG HR:72 bpm ECG Measurements Heart Rate 72 AXES [place] 155 P 38 QRSd 94 QRS 45 QT 368 T 35 QTc 393 Conclusion SINUS RHYTHM NORMAL ECG UNCONFIRMED REPORT Electronically signed by : Albino Lassiter MD 12/03/2021 21:22:27
[2021-12-03 13:23] LABS: Alanine Aminotransferase 139 U/L (12-78); Aspartate Amino Transferase 109 U/L (17-59); Blood Urea Nitrogen 13 mg/dl (9-20); Creatinine Clearance Estimated 183 mL/min (50-200); Estimated Glomerular Filt Rate 135 ml/min (>60); GFR (African American) 164 ML/MIN (>60)
[2021-12-03 13:24] LABS: Albumin Level 3.9 g/dl (3.5-5.0); Albumin/Globulin Ratio 1.1 (1.1-1.8); Alkaline Phosphatase 54 U/L (38-126); Bilirubin,Total 0.7 mg/dl (0.2-1.3); Calcium 9.2 mg/dl (8.4-10.2); Carbon Dioxide 30 mmol/L (22.0-30.0); Globulin 3.5 g/dL (1.3-3.2); Glucose 90 mg/dl (74-100); Total Protein,Serum 7.4 g/dl (6.3-8.2)
[2021-12-03 13:29] LABS: Ethyl Alcohol < 10 mg/dl (0-10)
[2021-12-03 13:35] LABS: Acetaminophen < 10 ug/ml (10-30); Salicylate < 1.0 mg/dL (2.0-20.0)
== END 2021-12-03 18:04 | disposition home or self-care (01) ==
PROVIDERS: Emergency Provider Emergency Medicine
DX: T40.1X1A Poisoning by heroin, accidental (unintentional), initial encounter (principal)
CPT/HCPCS: 71045; 80053; 80329; 85025; 93005; 99283